=== PATIENT | female | born 1975 | race African-American/Black ===

== ENCOUNTER 2017-07-25 10:28 | Outpatient (CLI) | payer OTHER | END 2017-07-25 12:00 | disposition home or self-care (01) | LOC: MAMMO 10:28 | DX: N63 Unspecified lump in breast (principal) ==

== ENCOUNTER 2017-07-29 22:36 | Emergency (ER) | payer OTHER ==
[~2017-07-29] VITALS: Ht 162.6 cm; Wt 43.5 kg
== END 2017-07-29 23:58 | disposition home or self-care (01) ==
LOC: ED 22:36
DX: R00.2 Palpitations (principal); I10 Essential (primary) hypertension
CPT/HCPCS: 99282

== ENCOUNTER 2018-07-26 07:59 | Outpatient (CLI) | payer OTHER | END 2018-07-26 22:15 | disposition home or self-care (01) | LOC: MAMMO 07:59 | DX: Z12.31 Encounter for screening mammogram for malignant neoplasm of breast (principal) ==

== ENCOUNTER 2020-09-16 09:09 | Outpatient (CLI) | payer OTHER | END 2020-09-16 20:56 | disposition home or self-care (01) | LOC: US 09:09 | PROVIDERS: ATTEND Family Medicine | DX: R10.9 Unspecified abdominal pain (principal); K59.00 Constipation, unspecified ==

== ENCOUNTER 2020-11-23 08:08 | Outpatient (CLI) | payer OTHER | END 2020-11-23 23:13 | disposition home or self-care (01) | LOC: MAMMO 08:08 | PROVIDERS: ATTEND Internal Medicine | DX: Z12.31 Encounter for screening mammogram for malignant neoplasm of breast (principal) ==

== ENCOUNTER 2022-08-16 08:43 | Outpatient (CLI) | payer OTHER | END 2022-08-16 19:30 | disposition home or self-care (01) | LOC: RAD 08:43 | PROVIDERS: ATTEND Family Medicine | DX: M54.59 Other low back pain (principal) ==

== ENCOUNTER 2023-08-07 08:07 | Outpatient (CLI) | payer OTHER ==
[2023-08-07 09:01] LABS: PLATELET COUNT 287 K/uL (152-353)
[2023-08-07 09:26] LABS: POTASSIUM 4.5 mmol/L (3.6-5.2)
== END 2023-08-07 19:49 | disposition home or self-care (01) ==
LOC: US 08:07
PROVIDERS: ATTEND Family Medicine
DX: R10.9 Unspecified abdominal pain (principal); D64.9 Anemia, unspecified; R31.9 Hematuria, unspecified
CPT/HCPCS: 36415; 80053; 81002; 82150; 82728; 83540; 83550; 83690; 85027